=== PATIENT | male | born 1945 | race Caucasian/White ===

== ENCOUNTER 2017-02-22 06:17 | Day surgery (SDC) | payer OTHER ==
[~2017-02-22] VITALS: Ht 175.3 cm; Wt 119.8 kg
[~2017-02-22 06:17] MED LIST: ASPI81 PO; CALC600T44 PO; CARV12.5 PO; CLOP75 PO; DIOV160T3 PO; DOCU1CAP39 PO; FURO20TA PO; HUMULOG; IRON28TA PO; JANU50TA9 PO; MULTTAB50; OMEP20CA5 PO; POTA-243 PO; PRAV80TA PO; RIVA20 PO
[2017-02-22] MEDS ORDERED: VANCOMYCIN HCL 1000 MG VIAL ONE (07:30)
[2017-02-22] MEDS ORDERED: SODIUM CHLOR 0.9% 250 ML INJ 250 ML ONE (07:30)
[2017-02-22 07:37] VITALS: BP 154/65; PULSE 66; RESP 18; TEMP 97.8; O2SAT 97
[2017-02-22 07:41] LABS: AUTOMATED NEUTROPHIL # 4.5 TH/MM3 (1.8-7.7); BASOPHIL % 0.6 % (0.0-2.0); EOSINOPHIL # 0.2 TH/MM3 (0-0.4); EOSINOPHIL % 2.5 % (0.0-4.0); HEMATOCRIT 40.9 % (39.0-51.0); HEMO FLAGS DIFF FINAL; LYMPH % 22.6 % (9.0-44.0); LYMPHOCYTE # 1.6 TH/MM3 (1.0-4.8); MEAN CELL VOLUME 87.9 FL (80.0-100.0); MEAN CORPUSCULAR HEMOGLOBIN 28.3 PG (27.0-34.0); MEAN CORPUSCULAR HGB CONC 32.2 % (32.0-36.0); MONO % 9.6 % (0.0-8.0); NEUT % 64.7 % (16.0-70.0); PLATELET COUNT 157 TH/MM3 (150-450); RED BLOOD COUNT 4.66 MIL/MM3 (4.50-5.90); RED CELL DISTRIBUTION WIDTH 14.5 % (11.6-17.2); WHITE BLOOD COUNT 6.9 TH/MM3 (4.0-11.0)
[2017-02-22] MEDS ORDERED: PRIL20TA2 (07:45)
[2017-02-22] MEDS ORDERED: SITA100T PO (07:45)
[2017-02-22] MEDS ORDERED: MULT1TAB46 (07:45)
[2017-02-22] MEDS ORDERED: IRON27TA (07:45)
[2017-02-22] MEDS ORDERED: NITR0.4S SL (07:45)
[2017-02-22] MEDS ORDERED: LEVEMIR SQ (07:45)
[2017-02-22] MEDS ORDERED: COLA100C (07:45)
[2017-02-22] MEDS ORDERED: CITRTAB13 (07:45)
[2017-02-22] MEDS ORDERED: ATOR1TAB18 PO (07:45)
[2017-02-22] MEDS ORDERED: METF1000 PO (07:45)
[2017-02-22] MEDS ORDERED: XARE20TA PO (07:45)
[2017-02-22] MEDS ORDERED: CARV12.52 PO (07:45)
[2017-02-22] MEDS ORDERED: LOSA100T PO (07:45)
[2017-02-22 07:51] LABS: APTT (PATIENT) 25.5 SEC (24.3-30.1); PROTHROMBIN TIME - PATIENT 11.1 SEC (9.8-11.6)
[2017-02-22 07:55] LABS: BICARBONATE 25.9 MEQ/L (21.0-32.0); POTASSIUM 3.9 MEQ/L (3.5-5.1)
[2017-02-22] MEDS ORDERED: VANCOMYCIN 500 MG VIAL ONE (07:55)
--- NOTE | 2017-02-22 08:41 | PD.CARD ---
PPM GENERATOR REPLACEMENT PROCEDURE DATE: Feb 22, 2017 PPM GENERATOR REPLACEMENT PROC PROCEDURE PERFORMED Permanent pacemaker removal, permanent pacemaker replacement, pocket revision and electrophysiology study through the device. Mr. Purcell is a 71 -year-old male with history of hx of atrial fibrillation, CAD, severe bradycardia, previous pacemaker inserted in 2008, generator end of life, who undergo pacer insertion. The risks, the nature and the benefit of the procedure were clearly stated to him. The risks include pneumothorax, cardiac perforation, stroke and even . The patient understood and agreed to proceed. PROCEDURE After written informed consent was obtained, the patient was brought to the EP lab where was prepped and draped in the sterile fashion. Conscious sedation was initiated using intravenous Versed and introducer intravenous fentanyl. Once sedation was verified, the left infraclavicular area over the generator was anesthetized with 2% Xylocaine. Using a #11 scalpel, a 2 centimeter incision was made over the existing generator. Dissection was then taken down to deep fascial layer using Bovie cautery and blunt dissection. Once exposed, the generator was removed from the pocket. The pocket was expanded. Scar tissue was removed around the leads. Then, the leads were disconnected and tested. At that point, the pocket was copiously irrigated using antibiotic solution. The leads were connected to the new generator and placed into the pocket. The pacemaker was interrogated. I did proceed with wound closure. The deep fascial layer was approximated with 2-0 Vicryl suture in a continuous fashion. The subcutaneous layer was approximated with 2-0 Vicryl suture in a continuous fashion. Dermabond adhesive was applied to the wound followed by a sterile pressure dressing. There was no complication. The patient tolerated procedure. Blood loss minimal. EXPLANTED HARDWARE The explanted permanent pacemaker is a Medtronic. Model #ADR01 serial number [id number]. For information about the existing leads, please refer to previous dictation. IMPLANTED HARDWARE The implanted permanent pacemaker is a Medtronic model number A2DR01, serial number [id number]. THRESHOLDS The right atrial pacing threshold in bipolar mode was 0.75 volt at 0.5 milliseconds. Lead impedance 360 ohms and P wave at 3.6 millivolts. The right ventricular pacing threshold in bipolar mode was 0.5 volts at 0.5 milliseconds. Lead impedance 360 ohms. R wave 18.9mv. SETTINGS The device is set in a AAAIR 60 with ability to switch to DDDR60. Upper limit 120 beats per minute. Hysteresis and mode switch are on. CONCLUSIONS Successful permanent pacemaker removal, permanent pacemaker implantation, pocket revision. COMMENT AND RECOMMENDATIONS The patient will be transferred to the telemetry unit. He will be observed. The patient will be discharged home later on today. Tristen Cason MD Feb 22, 2017 08:41
[2017-02-22] MEDS ORDERED: CEPH-460 PO (08:44)
[2017-02-22] MEDS ORDERED: HYDR-3288 PO (08:44)
[2017-02-22] MEDS ORDERED: ACETAMINOPHEN/CODEINE 300 MG/30 MG TAB PO PRN ×2 (08:45)
--- NOTE | 2017-02-22 08:56 | CATHPROC ---
[facility] HIS Report Study Information Study Number Admission Scheduled Start Study Start [id number] Feb 22 2017 6:17AM 02/22/2017 Feb 22 2017 6:59AM [place] [facility] Cardiac Pacer/ICD Admit Source Facility Department Other [facility] - [facility] Administrator Physician and Clinical Staff Initial Tristen Arizmendi Identification And Records Commander Ricarda Kelly,RT(R) TECH2 Identification And Records Commander Mari Combs,LAQUITA Other Anesthesia, METAL BONDING WORKER Recorder Mari Combs,LAQUITA Recorder Lisa Carter RN Recorder Ricarda Kelly,RT(R) TECH2 Scrub Buddy FernandezRT(R) Equipment Time Tapper Supervisor Description Size Mfg Part Number Used/Scraped DERMABOND, ADHESIVE SKIN [id number] 07:50 CORDIS/PACER * Used GLUE MINI *[id number] 07:50 MEDLINE INDUSTRIES SUTURE, STRIP PLUS 1/2" * Used *[id number] 07:50 MEDLINE PACER DICKERSON, LIMB * 2530 *[id number] Used [id number] 07:50 MEDLINE PACER PACK, PACER CUSTOM * Used *[id number] 08:11 Needle Sponge Count 1 111 Used 08:10 Needle Sponge Count 2 22 Used 08:10 Needle Sponge Count 2 2 Used 08:10 Needle Sponge Count 20 200 Used SUTURE, 2-0 VICRYL [CT1] ([id number]) [id number] 07:50 [employer],WARM AIR CCL * Used *[id number] [facility] PAD, ELECTROSURGICAL 07:50 * [id number] *[id number] Used SURGICAL GROUNDING ORANGE PACEMAKERLEANN DR MRI 08:28 VITATRON MEDTRONIC OEA-DDDR [id number] Used SURESCAN 08:14 VITATRON MEDTRONIC PLASMABLADE, PEAD 3.0S * [id number] Used Equipment Model, Serial, Lot Number and Expiration Data Description Model Number Serial Number Lot Number Expiration Date PACEMAKERLEANN DR MRI [id number] 06-24-2018 SURESCAN Medication Medication Total Dose (Bolus/Oral) Medication Total Dosage/Unit 2% XYLOCAINE 50 mL Medications (Bolus/Oral) Medication Time Given Dosage/Unit Administered By Reason 2% XYLOCAINE 02/22/2017 8:26:25 AM 50 mL Tristen Cason 50 mL 2% XYLOCAINE given in lab by Tristen Cason via Subcutaneous. Ordered by Tristen Cason. applied to left upper chest Medication (Drip) Medication Time Given Dosage/Unit Concentration/Unit Diluent (ml) Solution ANCEF 02/22/2017 7:58:51 AM 2 g 2 g ANCEF given in lab by Anesthesia, METAL BONDING WORKER in Right Wrist via Peripheral IV. Ordered by Tristen Cason . IV Solutions 02/22/2017 8:01:55 AM 50 mL (IV) 500 NaCl .9 IV Solutions given pre op in Left Wrist via Peripheral IV. Pump/Drip Flow using NaCl .9. IV Solutions 02/22/2017 8:01:56 AM 0 mL (IV) 500 NaCl .9 IV Solutions given pre op by Anesthesia, METAL BONDING WORKER in Right Forearm via Peripheral IV. Pump/Drip Flow = 20 ml/hr using NaCl .9. Ordered by Tristen Cason. VANCOMYCIN DRIP 02/22/2017 7:58:42 AM 1 g 1 g VANCOMYCIN DRIP given in lab by Anesthesia, METAL BONDING WORKER in Right Wrist via Peripheral IV. Ordered by Tristen Davila. Final Case Assessment Cardiovascular HR Rhythm NIBP Chest Pain 70 sr 78/45 0 Edema Present Skin color Skin None Normal Warm Dry Neurological State Oriented to time-place- Alert Moves all extremities person Respiration - General Respiration Rate SpO2 (%) (B/min) 18 99 Chronological Log Time Study Chronological Log 7:48:31 Patient arrived via Bed. 7:48:33 Patient Name, D.O.B, / Armband Verified By R.N. 7:48:34 Consent signed by the physician and the patient and verified by the Hadoop Administrator staff. 7:48:35 Pre-op and post- op instructions given; patient acknowledges understanding of instructions. 7:48:51 Anesthesia at bedside. Assumes care of patient. 7:49:39 Verbal Stimulation=2 Physical Stimulation=2 Airway=2 Respiration=2 TOTAL=8. (0=absent, 1=man ited, 2=present) 7:49:57 Presedation assessment performed by Hadoop Administrator RN. 7:49:59 Patient has been NPO for More than 6Hrs. 7:50:01 Skin Breakdown-none per patient 7:50:12 Patient Warmer Placed on the Table. 7:50:13 Disposable Defibrillator Pads Placed On Patient. 7:50:14 Johanna Prominences Protected 7:58:42 1 g VANCOMYCIN DRIP given in lab by Anesthesia, METAL BONDING WORKER in Right Wrist via Peripheral IV. Order ed by Tristen Cason. 7:58:51 2 g ANCEF given in lab by Anesthesia, METAL BONDING WORKER in Right Wrist via Peripheral IV. Ordered by Tristen Howell. 8:01:53 A # 22 IV was noted in the Wrist (right). Grade = 0 8:01:54 A # 22 IV was noted in the Forearm (left). Grade = 0 8:01:55 IV Solutions given pre op in Left Wrist via Peripheral IV. Pump/Drip Flow using NaCl .9. IV Solutions given pre op by Anesthesia, METAL BONDING WORKER in Right Forearm via Peripheral IV. Pump/Drip Flow = 20 ml/hr using 8:01:56 NaCl .9. Ordered by Tristen Cason. 8:05:46 Left Upper Chest Prepped Times Two. 8:09:44 2% CHLORHEXIDINE GLUCONATE WASH AND NASAL SWIPE DONE PRIOR TO PROCEDURE. First Sponge And Instrument Count Done by Mari Combs RN. 8:09:52 Hypo's: 2, Sponges: 20, Bovie/scratch: 1 Sutures: 2, Blades: 1, Instruments: 26, Syveck Patches: 0 8:11:36 Dr Cason notified that we are ready 8:20:43 Bovie ground pad applied to: right hip 8:22:23 MD arrived. 8:22:51 Consent signed by the physician and the patient and verified by the H[facility] Administrator staff. Time Out #2 - Consents verified, patient in correct position, all results are labled and display ed, safety precautions 8:25:00 taken, antibiotics administered. Time out concurred by MD, individual staff and METAL BONDING WORKER in procedur e Time Out. Correct patient, procedure, procedure equipment, site and side verified with physician present. Time 8:25:01 concurred by MD, individual staff and METAL BONDING WORKER. 8:26:22 Case Start 50 mL 2% XYLOCAINE given in lab by Tristen Cason via Subcutaneous. Ordered by Tristen Cason. og lied to left upper 8:26:25 chest 8:26:59 Surgical Incision Made. 8:27:01 A pocket was created at the L Upper Chest. 8:27:19 A device was explanted. 8:29:28 A PACEMAKER, LEANN CELISAN OEA-DDDR was connected and placed in the pocket. 8:32:21 Implant Procedure was performed. generator change 8:32:43 A PPM Removal . (Dual) 8:32:51 A PPM Implant . (Dual) Second Sponge And Instrument Count Done by Lisa Carter RN. 8:33:12 Hypo's: 2, Sponges: 20, Bovie/scratch: 1 Sutures: ~SUTURE~, Blades: 1, Instruments: ~INSTRU~, Syveck Patches: 0 8:45:24 The pocket was closed. The Final Sponge And Instrument Count Done by Lisa Carter RN. 8:46:26 Hypo's: 2, Sponges: 20, Bovie/scratch: 1 Sutures: 3, Blades: 1, Instruments: 26, Syveck Patches: 0 one suture added to count for total of 3 8:46:35 Bedside Report will be given. 8:46:43 DOCU called. Spoke to Amada COELHO 8:53:38 No case complications noted. 8:53:42 Sterile dressing applied to site 8:53:53 Implantable Device card placed in patient's chart. 8:53:55 Defibrillator and ground pads removed. Skin intact. Assessment: Final Case, HR=70 BPM, Rhythm=sr, NIBP=78/45 mmhg, Chest Pain=0, Edema=None, Color =Normal, Skin = Warm, Dry 8:54:02 Neurological: State=Alert, Ox3, [place] Respiration: Resp=18 B/min, SpO2=99 % 8:54:52 Please see anesthesia notes for medications and vitals during the procedure. 8:56:06 Case End 8:58:27 [facility] to [facility] End Study - Contrast Media Used In Study Contrast Total Opened (mL) Total Used (mL) Total Wasted (mL) Unspecified 0 0 0 End Study - Radiation Exposure Fluoro Time (minutes) 0.1 End Study - Patient Disposition Complications Transferred To No Outpatient Bed
[2017-02-22] MEDS ORDERED: MIDAZOLAM HCL 2 MG/2 ML VIAL ONE (09:18)
--- NOTE | 2017-02-22 14:25 | EKG ---
Date Performed: 02/22/2017 Time Performed: 07:42:38 PTAGE: 71 years EKG: Unclear underlying rhythm with possible PVCs Ventricular demand pacemaker COMPARED TO PRIOR ELECTROCARDIOGRAM, Atrial pacing is not seen. Abnormal ECG PREVIOUS TRACING : 05/13/2015 10.01 DOCTOR: Nahid Shoemaker Interpretating Date/Time 02/22/2017 14:24:39
[2017-02-22] MEDS ORDERED: PROPOFOL 200 MG/20 ML AMP IV ONE (14:57)
== END 2017-02-22 11:30 | disposition home or self-care (01) ==
LOC: HDOC 06:17 → HDIC 06:18 → HDOC 11:30
PROVIDERS: ATTEND Internal Medicine Interventional Cardiology
DX: Z45.010 Encounter for checking and testing of cardiac pacemaker pulse generator [battery] (principal); R00.1 Bradycardia, unspecified; I48.91 Unspecified atrial fibrillation; I25.10 Atherosclerotic heart disease of native coronary artery without angina pectoris; E11.9 Type 2 diabetes mellitus without complications; Z01.818 Encounter for other preprocedural examination
CPT/HCPCS: 33228; 80048; 82948; 85025; 85610; 85730; 86850; 86900; 86901; 93005; C1785; J2250; J3010; J3370; J7050

== ENCOUNTER 2017-04-14 10:59 | Emergency (ER) | payer OTHER ==
[~2017-04-14] VITALS: Ht 172.7 cm; Wt 120.0 kg
[~2017-04-14 10:59] MED LIST changes: -ASPI81 PO; +ATOR1TAB18 PO; -CALC600T44 PO; -CARV12.5 PO; +CARV12.52 PO; +CEPH-460 PO; +CITRTAB13; -CLOP75 PO; +COLA100C; -DIOV160T3 PO; -DOCU1CAP39 PO; -FURO20TA PO; -HUMULOG; +HYDR-3288 PO; +IRON27TA; -IRON28TA PO; -JANU50TA9 PO; +LEVEMIR SQ; +LOSA100T PO; +METF1000 PO; +MULT1TAB46; -MULTTAB50; +NITR0.4S SL; -OMEP20CA5 PO; -POTA-243 PO; -PRAV80TA PO; +PRIL20TA2; -RIVA20 PO; +SITA100T PO; +XARE20TA PO
[2017-04-14 11:01] VITALS: BP 159/74; PULSE 75; RESP 15; TEMP 97.4; O2SAT 99
--- NOTE | 2017-04-14 12:06 | PD ---
HPI Chief Complaint: Skin Problem Time Seen by Provider: 11:21 Travel History International Travel<30 days: No Contact w/Intl Traveler<30days: No Traveled to known affect area: No History of Present Illness HPI PATIENT HAD PACEMAKER PLACED IN FEBRUARY OF THIS YEAR, OVER PAST 2 DAYS HAS NOTED SOME REDNESS TO AREA AROUND IT AND SOME DISHARGE FROM IT ACCORDING TO HIM, SO WAS TOLD TO HAVE EVALUATION. PATIENT IS OTHERWISE STABLE, DENIES FEVER/N/V/D/CP /ABDPAIN AT THIS TIME. PFSH Past Medical History Hx Anticoagulant Therapy: Yes Arthritis: Yes (neck/back) Asthma: No Autoimmune Disease: No Blood Disorders: No Anxiety: No Depression: No Heart Rhythm Problems: No Cancer: Yes (SKIN) Cardiac Catheterization: No Cardiovascular Problems: Yes High Cholesterol: Yes Chemotherapy: No Chest Pain: Yes (This admission) Congestive Heart Failure: No COPD: Yes Diabetes: Yes Patient Takes Glucophage: Yes (morning apr 14 2017) Diminished Hearing: No Endocrine: Yes Gastrointestinal Disorders: Yes GERD: Yes Glaucoma: No Genitourinary: No Hepatitis: No Hiatal Hernia: No Hypertension: Yes Immune Disorder: No Musculoskeletal: Yes Neurologic: No Psychiatric: No Reproductive: No Respiratory: Yes (COPD) Myocardial Infarction: Yes (prior to cabg) Radiation Therapy: No Sickle Cell Disease: No Sleep Apnea: Yes (used to have it p/t bariatric surgery) Thyroid Disease: No Ulcer: Yes (duodenal ulcer 30+ yrs ago) Tetanus Vaccination: Unknown Past Surgical History Abdominal Surgery: Yes (ronnie 15 yrs ago, gastric bypass ) AICD: No Appendectomy: No Arteriovenous Shunt: No Cardiac Surgery: Yes (quad cabg 2006, pacemaker) Cholecystectomy: Yes Coronary Artery Bypass Graft: Yes Ear Surgery: Yes Endocrine Surgery: No Eye Surgery: Yes (cataract surgery bilat <= 3 yrs ago) Genitourinary Surgery: No Gynecologic Surgery: No Insulin Pump: No Joint Replacement: No Oral Surgery: Yes (tonsils as child; upper teeth pulled 14 yrs ago) Pacemaker: Yes (2008) Thoracic Surgery: Yes Tonsillectomy: Yes Other Surgery: Yes (PACEMAKER) Family History Family Myocardial Infarction: Yes Social History Alcohol Use: Yes (social beer/wine) Tobacco Use: No (quit 1985 smoked 40+ yrs) Substance Use: No Allergies-Medications (Allergen,Severity, Reaction): Coded Allergies: No Known Allergies (Verified , 04/14/17) Reported Meds & Prescriptions Reported Meds & Active Scripts Active Keflex (Cephalexin) 500 Mg Cap 500 Mg PO TID Snyder (Hydrocodone-Acetaminophen) 7.5-325 mg Tab 1 Tab PO Q6H PRN Reported Citracal Plus (Multiple Minerals W/ Vitamins) 1 Tab Tab Iron (Ferrous Gluconate) 27 Mg Tab Xarelto (Rivaroxaban) 20 Mg Tab 20 Mg PO DAILY Prilosec (Omeprazole Magnesium) 20 Mg Tab Nitrostat SL (Nitroglycerin) 0.4 Mg Subl 0.4 Mg SL DIRECTED PRN 1 tablet under the tongue as needed for chest pain. Repeat every 5 minutes for a total of 3 DOSES or call 911 if NO relief. Multi Vitamin Daily (Multiple Vitamin) 1 Tab Tab Metformin (Metformin HCl) 1,000 Mg Tab 1,000 Mg PO DAILY With a meal Losartan (Losartan Potassium) 100 Mg Tab 100 Mg PO DAILY Levemir Inj (Insulin Detemir) 1,000 unit/ 10 ML Vial 35 Units SQ HS Do not mix with any other Insulin. Janumet Xr (Sitagliptin-Metformin ER) 100-1,000 Mg Tab 1 Tab PO DAILY Colace (Docusate Sodium) 100 Mg Capsule Carvedilol 12.5 Mg Tab 12.5 Mg PO BID Atorvastatin (Atorvastatin Calcium) 80 Mg Tab 80 Mg PO HS Review of Systems Except as stated in HPI: all other systems reviewed are Neg Skin: Positive Rash, Positive Lesions Physical Exam Narrative GENERAL: SKIN: Warm and dry. HEAD: Atraumatic. Normocephalic. EYES: Pupils equal and round. No scleral icterus. No injection or drainage. ENT: No nasal bleeding or discharge. Mucous membranes pink and moist. NECK: Trachea midline. No JVD. CARDIOVASCULAR: Regular rate and rhythm. LEFT PEC REGION HAS A SMALL AREA OF ERYTHEMA ABOUT 5CM, NO INDURATION, NO DISCHARGE EXPRESSED AT BEDSIDE RESPIRATORY: No accessory muscle use. Clear to auscultation. Breath sounds equal bilaterally. GASTROINTESTINAL: Abdomen soft, non-tender, nondistended. Hepatic and splenic margins not palpable. MUSCULOSKELETAL: Extremities without clubbing, cyanosis, or edema. No obvious deformities. NEUROLOGICAL: Awake and alert. No obvious cranial nerve deficits. Motor grossly within normal limits. Five out of 5 muscle strength in the arms and legs. Normal speech. PSYCHIATRIC: Appropriate mood and affect; insight and judgment normal. Data Data Last Documented VS Vital Signs Date Time Temp Pulse Resp B/P Pulse Ox O2 Delivery O2 Flow Rate FiO2 04/14/17 11:25 92 18 04/14/17 11:01 97.4 159/74 99 Orders Electrocardiogram (04/14/17 11:25) Complete Blood Count With Diff (04/14/17 11:25) Comprehensive Metabolic Panel (04/14/17 11:25) B-Type Natriuretic Peptide (04/14/17 11:25) Lipase (04/14/17 11:25) Ct Thorax/ Chest Wo Iv Contras (04/14/17 ) Lactic Acid Sepsis Protocol (04/14/17 11:27) Blood Culture (04/14/17 11:40) Labs Laboratory Tests Test 04/14/17 11:45 White Blood Count 6.2 TH/MM3 Red Blood Count 4.83 MIL/MM3 Hemoglobin 14.1 GM/DL Hematocrit 42.6 % Mean Corpuscular Volume 88.2 FL Mean Corpuscular Hemoglobin 29.1 PG Mean Corpuscular Hemoglobin 33.0 % Concent Red Cell Distribution Width 14.9 % Platelet Count 175 TH/MM3 Mean Platelet Volume 9.0 FL Neutrophils (%) (Auto) 62.6 % Lymphocytes (%) (Auto) 25.9 % Monocytes (%) (Auto) 9.3 % Eosinophils (%) (Auto) 1.6 % Basophils (%) (Auto) 0.6 % Neutrophils # (Auto) 3.9 TH/MM3 Lymphocytes # (Auto) 1.6 TH/MM3 Monocytes # (Auto) 0.6 TH/MM3 Eosinophils # (Auto) 0.1 TH/MM3 Basophils # (Auto) 0.0 TH/MM3 CBC Comment DIFF FINAL Differential Comment Sodium Level 141 MEQ/L Potassium Level 4.6 MEQ/L Chloride Level 106 MEQ/L Carbon Dioxide Level 28.9 MEQ/L Anion Gap 6 MEQ/L Blood Urea Nitrogen 16 MG/DL Creatinine 1.16 MG/DL Estimat Glomerular Filtration 62 ML/MIN Rate Random Glucose 161 MG/DL Lactic Acid Level 1.3 mmol/L Calcium Level 8.7 MG/DL Total Bilirubin 0.4 MG/DL Aspartate Amino Transf 24 U/L (AST/SGOT) Alanine Aminotransferase 37 U/L (ALT/SGPT) Alkaline Phosphatase 88 U/L B-Type Natriuretic Peptide 116 PG/ML Total Protein 7.1 GM/DL Albumin 3.2 GM/DL Lipase 245 U/L MDM Medical Decision Making Medical Screen Exam Complete: Yes Emergency Medical Condition: Yes Medical Record Reviewed: Yes Differential Diagnosis ABSCESS V CELLULITIS V INFECTED DEVICE Narrative Course PATIENT SKIN SHOWS SUPERFICIAL CELLULITIS HOWEVER WILL CT CHEST TO EVALUATE EXTENT AND IF SUPERFICIAL ONLY WILL D/C ON PO ABX AFTER IV ABX DOSE Diagnosis Primary Impression: CHEST WALL DISCOMFORT Additional Impression: CELLULITIS Scripts Sulfamethoxazole-Trimethoprim (Bactrim DS)800-160 Mg Tab1 Tab PO BID #20 TAB Prov:Ranjan Goldman MD 04/14/17 Disposition: 01 DISCHARGE HOME Condition: Stable Ranjan Goldman MD Apr 14, 2017 12:06
[2017-04-14 12:08] LABS: AUTOMATED NEUTROPHIL # 3.9 TH/MM3 (1.8-7.7); BASOPHIL % 0.6 % (0.0-2.0); EOSINOPHIL # 0.1 TH/MM3 (0-0.4); EOSINOPHIL % 1.6 % (0.0-4.0); HEMATOCRIT 42.6 % (39.0-51.0); HEMO FLAGS DIFF FINAL; LYMPH % 25.9 % (9.0-44.0); LYMPHOCYTE # 1.6 TH/MM3 (1.0-4.8); MEAN CELL VOLUME 88.2 FL (80.0-100.0); MEAN CORPUSCULAR HEMOGLOBIN 29.1 PG (27.0-34.0); MONO % 9.3 % (0.0-8.0); NEUT % 62.6 % (16.0-70.0); PLATELET COUNT 175 TH/MM3 (150-450); RED BLOOD COUNT 4.83 MIL/MM3 (4.50-5.90); RED CELL DISTRIBUTION WIDTH 14.9 % (11.6-17.2); WHITE BLOOD COUNT 6.2 TH/MM3 (4.0-11.0)
[2017-04-14 12:17] LABS: ALT (GPT) 37 U/L (12-78); ANION GAP 6 MEQ/L (5-15); AST (GOT) 24 U/L (15-37); BICARBONATE 28.9 MEQ/L (21.0-32.0); BLOOD UREA NITROGEN 16 MG/DL (7-18); CHLORIDE 106 MEQ/L (98-107); GLOMERULAR FILTRATION RATE 62 ML/MIN (>89); POTASSIUM 4.6 MEQ/L (3.5-5.1); SODIUM (NA) 141 MEQ/L (136-145)
[2017-04-14 12:19] LABS: ALKALINE PHOSPHATASE 88 U/L (45-117); TOTAL BILIRUBIN ADULT 0.4 MG/DL (0.2-1.0)
--- NOTE | 2017-04-14 12:56 | RADRPT ---
EXAM DATE/TIME: 04/14/2017 12:25 [place] COMPARISON: No previous studies available for comparison. INDICATIONS : Evaluate for abscess. drainage around pacemaker on left chest RADIATION DOSE: 8.54 CTDIvol (mGy) MEDICAL HISTORY : Myocardial infarction. Hypertension. Chronic obstructive pulmonary disease. SURGICAL HISTORY : CABG Pacemaker.Cholecystectomy. ENCOUNTER: Initial ACUITY: 4 - 6 days PAIN SCALE: 3/10 LOCATION: Left chest TECHNIQUE: Volumetric scanning of the chest was performed. Using automated exposure control and adjustment of t he mA and/or kV according to patient size, radiation dose was kept as low as reasonably achievable to obtain optimal diagnostic quality images. DICOM format image data is available electronically for r eview and comparison. Follow-up recommendations for incidentally detected pulmonary nodules are based at a minimum on nodul e size and patient risk factors according to Fleischner Society Guidelines. FINDINGS: LUNGS: There is no consolidation or pneumothorax. No concerning pulmonary nodule is visualized. Small blebs are present at the right lung apex. PLEURAE: There is no pleural effusion. Bilateral calcified pleural plaques are present. MEDIASTINUM: The heart and great vessels demonstrate no acute abnormality. There is coronary artery calcification and there has been prior CABG. Pacing wires are present in the right heart. There is no mediastinal or hilar lymphadenopathy. AXILLAE: Within normal limits. No lymphadenopathy. MUSCULOSKELETAL: There are degenerative changes of the thoracic spine and patient is post median sternotomy. MISCELLANEOUS: The visualized upper abdominal organs demonstrate no acute abnormality. Left chest wall cardiac pacin g device is present superficial to the left pectoralis muscle. There is no surrounding fluid collecti on visualized. There is minimal linear stranding extending to the overlying skin from the superior as pect of the device. The patient is post gastric bypass surgery. A small hiatal hernia is present. The re is fluid in the excluded stomach. CONCLUSION: 1. There is minimal linear subcutaneous fat stranding extending from the superior aspect of the left chest wall pacing device to the overlying skin. However, no fluid collection or abscess is visualized . 2. 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 3. Nonacute findings include coronary artery calcification and small hiatal hernia. Micky Valencia MD on April 14, 2017 at 12:47 Board Certified Radiologist. This report was verified electronically.
[2017-04-14] MEDS ORDERED: BACT800T5 PO (13:03)
[2017-04-14] MEDS ORDERED: VANCOMYCIN INJ 1,000 MG in SODIUM CHLOR 0.9% 250 ML INJ 250 ML IV ONE (13:15)
--- NOTE | 2017-04-15 13:49 | EKG ---
Date Performed: 04/14/2017 Time Performed: 11:31:09 PTAGE: 71 years EKG: ELECTRONIC ATRIAL PACEMAKER INTRAVENTRICULAR CONDUCTION DELAY Compared to previous tracing, the patient now has atrial pacing. ABNORMAL ECG PREVIOUS TRACING : 02/22/2017 07.42 DOCTOR: Josef Mendez Interpretating Date/Time 04/15/2017 13:49:28
== END 2017-04-14 15:04 | disposition home or self-care (01) ==
LOC: NEPE 10:59
DX: R07.89 Other chest pain (principal); L03.313 Cellulitis of chest wall; E11.9 Type 2 diabetes mellitus without complications; E78.00 Pure hypercholesterolemia, unspecified; I10 Essential (primary) hypertension; I25.10 Atherosclerotic heart disease of native coronary artery without angina pectoris; I25.2 Old myocardial infarction; Z95.1 Presence of aortocoronary bypass graft; Z95.0 Presence of cardiac pacemaker; Z90.49 Acquired absence of other specified parts of digestive tract; Z79.4 Long term (current) use of insulin; Z79.899 Other long term (current) drug therapy
CPT/HCPCS: 71250; 80053; 83605; 83690; 83880; 85025; 87040; 93005; 96374; 99285; J3370; J7050